=== PATIENT | male | born 1985 | race Hispanic/Latino ===

== ENCOUNTER 2022-11-27 17:14 | Emergency (ER) | payer OTHER ==
[~2022-11-27] VITALS: Ht 175.3 cm; Wt 99.8 kg
[2022-11-27 18:25] LABS: RAPID GROUP A STREP positive (NEGATIVE)
[2022-11-27 18:26] LABS: SARS-CoV-2, RNA, NAAT POSITIVE SARS CoV-2 (NEGATIVE)
[2022-11-27 18:30] LABS: INFLUENZA TYPE A Negative For Type A (NEGATIVE); INFLUENZA TYPE B Negative For Type B (NEGATIVE)
[2022-11-27] MEDS ORDERED: CYCL-309 PO (20:20)
[2022-11-27] MEDS ORDERED: IBUP-1493 PO (20:20)
[2022-11-27] MEDS ORDERED: NIRM1TAB PO (20:20)
[2022-11-27] MEDS ORDERED: IBUPROFEN 800 MG TAB PO ONE (20:30)
[2022-11-27] MEDS ORDERED: CYCLOBENZAPRINE HCL 10 MG TABLET PO ONE (20:30)
[2022-11-27 20:40] VITALS: BP 123/87; PULSE 84; RESP 18; O2SAT 99
== END 2022-11-27 21:47 | disposition home or self-care (01) ==
LOC: EDH 17:14
DX: U07.1 COVID-19 (principal); M54.50 Low back pain, unspecified; E86.0 Dehydration
CPT/HCPCS: 99283; 87635; 87880; 87804 ×2; C9803